=== PATIENT | male | born 1995 | race Caucasian/White ===

== ENCOUNTER 2018-10-07 17:02 | Emergency (ER) | payer SELFPAY ==
[2018-10-07] MEDS ORDERED: HYDROCODONE/APAP 5/325 MG TAB ONE (17:46)
--- NOTE | 2018-10-07 17:51 | RAD REPORT ---
EXAM DESCRIPTION: RAD - Hand Right 3 View - 10/07/2018 5:39 pm CLINICAL HISTORY: Right hand pain status post injury FINDINGS: Mildly to moderately displaced oblique fracture involves the proximal aspect of the fifth proximal phalanx. No dislocation seen
--- NOTE | 2018-10-07 18:12 | ER ---
Nurse's Notes [facility] Name: José Miguel Cantu Age: 22 yrs Sex: Male : 1995 Arrival Date: 10/07/2018 Time: 17:05 Bed 25 Private MD: Diagnosis: Displaced fracture of base of fifth metacarpal bone, right hand Presentation: 10/07 17:07 Presenting complaint: Right hand pain and swelling after punching wall 4 days ago. hb Transition of care: patient was not received from another setting of care. Onset of symptoms was October 07, 2018. Risk Assessment: Do you want to hurt yourself or someone else? Patient reports no desire to harm self or others. Initial Sepsis Screen: Does the patient meet any 2 criteria? No. Patient's initial sepsis screen is negative. Does the patient have a suspected source of infection? No. Patient's initial sepsis screen is negative. Care prior to arrival: None. 17:07 Method Of Arrival: Ambulatory 17:07 Acuity: RADHA 4 hb Triage Assessment: 18:51 Injury Description: Bruise sustained to right hand and dorsum of right hand. tl3 Historical: - Allergies: 17:08 No Known Allergies; hb - Home Meds: 17:08 None [Active]; hb - PMHx: 17:08 None; hb - PSHx: 17:08 Cholecystectomy; hb - Immunization history:: Adult Immunizations up to date. - Social history:: Smoking status: Patient/guardian denies using tobacco. - Ebola Screening: : No symptoms or risks identified at this time. Screenin:38 Abuse screen: Denies threats or abuse. Nutritional screening: No deficits noted. tl3 Tuberculosis screening: No symptoms or risk factors identified. Fall Risk None identified. Assessment: 17:38 General: Appears comfortable, slender, Behavior is calm, cooperative, appropriate for tl3 age. Pain: Complains of pain in right hand and dorsum of right hand. Neuro: Level of Consciousness is awake, alert, obeys commands. Cardiovascular: Patient's skin is warm and dry. Respiratory: Airway is patent. GI: No deficits noted. No signs and/or symptoms were reported involving the gastrointestinal system. : No deficits noted. No signs and/or symptoms were reported regarding the genitourinary system. EENT: No deficits noted. No signs and/or symptoms were reported regarding the EENT system. Derm: No deficits noted. No signs and/or symptoms reported regarding the dermatologic system. Musculoskeletal: Swelling present in right hand. 18:49 Reassessment: Patient appears in no apparent distress at this time. No changes from tl3 previously documented assessment. Patient and/or family updated on plan of care and expected duration. Pain level reassessed. Patient is alert, oriented x 3, equal unlabored respirations, skin warm/dry/pink. Vital Signs: 17:08 BP 134 / 74; Pulse 73; Resp 16; Temp 97.9; Pulse Ox 99% ; Pain 5/10; hb 18:49 BP 128 / 76; Pulse 75; Resp 18; Pulse Ox 100% on R/A; tl3 ED Course: 17:05 Patient arrived in ED. mr 17:08 Triage completed. hb 17:08 Arm band placed on left wrist. hb 17:13 Konstantin Sethi MD is Attending Physician. ps1 17:37 Hand Right 3 View XRAY In Process Unspecified. EDVT 17:37 Amira Bustamante, NOE is Primary Nurse. tl3 17:38 Patient has correct armband on for positive identification. Bed in low position. tl3 17:38 No provider procedures requiring assistance completed. Patient did not have IV access tl3 during this emergency room visit. 18:10 Dominic Lazar MD is Referral Physician. ps1 18:49 No apparent distress. tl3 18:49 Orthoglass splint: Ulnar gutter/Boxer splint applied on right forearm. tl3 Administered Medications: 17:38 Drug: [place] 5 mg-325 mg 1 tabs Route: PO; tl3 18:17 Follow up: Response: No adverse reaction tl3 Outcome: 18:11 Discharge ordered by . ps1 18:49 Discharged to home ambulatory. tl3 18:49 Condition: stable 18:49 Discharge instructions given to patient, Instructed on discharge instructions, follow up and referral plans. medication usage, Demonstrated understanding of instructions, follow-up care, medications, splint care, Prescriptions given X 2. 18:52 Patient left the ED. tl3 Signatures: Dispatcher [employer] [facility] GabeJuli HernandezWendy RN RN Konstantin Sethi MD MD [facility] Amira Bustamante, NOE RN tl3
--- NOTE | 2018-10-07 18:12 | EDPHYS ---
Physician Documentation [facility] Name: José Miguel Cantu Age: 22 yrs Sex: Male : 1995 Arrival Date: 10/07/2018 Time: 17:05 Bed 25 Private MD: ED Physician Konstantin Sethi HPI: 10/07 17:17 This 22 yrs old Male presents to ER via Ambulatory with complaints of Hand ps1 Injury. 17:17 right hand dominant male punched a wall. Pain localized over 5th MCP. Limited ROM 2/2 ps1 pain. Pain rated as moderate, worse with movement. NV intact. . Historical: - Allergies: 17:08 No Known Allergies; hb - Home Meds: 17:08 None [Active]; hb - PMHx: 17:08 None; hb - PSHx: 17:08 Cholecystectomy; hb - Immunization history:: Adult Immunizations up to date. - Social history:: Smoking status: Patient/guardian denies using tobacco. - Ebola Screening: : No symptoms or risks identified at this time. ROS: 17:17 Constitutional: Negative for fever, chills, and weight loss, Eyes: Negative for injury, ps1 pain, redness, and discharge, Cardiovascular: Negative for chest pain, palpitations, and edema, Respiratory: Negative for shortness of breath, cough, wheezing, and pleuritic chest pain, Abdomen/GI: Negative for abdominal pain, nausea, vomiting, diarrhea, and constipation, Skin: Negative for injury, rash, and discoloration, Neuro: Negative for headache, weakness, numbness, tingling, and seizure. 17:17 MS/extremity: Positive for pain, of the dorsum of right hand. Exam: 17:17 Constitutional: This is a well developed, well nourished patient who is awake, alert, ps1 and in no acute distress. Head/Face: Normocephalic, atraumatic. Eyes: Pupils equal round and reactive to light, extra-ocular motions intact. Lids and lashes normal. Conjunctiva and sclera are non-icteric and not injected. Chest/axilla: Normal chest wall appearance and motion. Nontender with no deformity. No lesions are appreciated. Cardiovascular: Regular rate and rhythm. No gallops, murmurs, or rubs. Normal PMI, no JVD. No pulse deficits. Respiratory: Lungs have equal breath sounds bilaterally, clear to auscultation and percussion. No rales, rhonchi or wheezes noted. No increased work of breathing, no retractions or nasal flaring. Abdomen/GI: Soft, non-tender, with normal bowel sounds. No distension or tympany. No guarding or rebound. No evidence of tenderness throughout. Skin: Warm, dry with normal turgor. Normal color with no rashes, no lesions, and no evidence of cellulitis. Neuro: Awake and alert, GCS 15, oriented to person, place, time, and situation. Cranial nerves II-XII grossly intact. Sensory grossly intact. 17:17 Musculoskeletal/extremity: Extremities: grossly normal except: noted in the dorsum of right hand: pain, swelling. Vital Signs: 17:08 BP 134 / 74; Pulse 73; Resp 16; Temp 97.9; Pulse Ox 99% ; Pain 5/10; hb 18:49 BP 128 / 76; Pulse 75; Resp 18; Pulse Ox 100% on R/A; tl3 Procedures: 18:12 Splinting: Splint applied to right hand using wrist splint, applied by nurse. Examined ps1 by me, post splint application: neurovascular intact, 2+ distal pulses palpable, brisk capillary refill noted, Patient tolerated well. MDM: 18:11 Patient medically screened. ps1 18:12 Data reviewed: vital signs, nurses notes, and as a result, I will discharge patient. ps1 10/07 17:16 Order name: Hand Right 3 View XRAY; Complete Time: 18:14 ps1 Administered Medications: 17:38 Drug: [place] 5 mg-325 mg 1 tabs Route: PO; tl3 18:17 Follow up: Response: No adverse reaction tl3 Disposition: 10/07/18 18:11 Discharged to Home. Impression: Displaced fracture of base of fifth metacarpal bone, right hand. - Condition is Stable. - Discharge Instructions: Boxer's Fracture. - Prescriptions for Tylenol- Codeine #3 300-30 mg Oral Tablet - take 2 tablet by ORAL route every 6 hours As needed; 30 tablet. Zofran 4 mg Oral Tablet - take 1 tablet by ORAL route every 12 hours As needed; 20 tablet. - Medication Reconciliation Form, Thank You Letter, Antibiotic Education, Prescription Opioid Use form. - Follow up: Dominic Lazar MD; When: 1 week; Reason: Further diagnostic work-up, Recheck today's complaints, Continuance of care, Re-evaluation by your physician. Follow up: Emergency Department; When: As needed; Reason: Worsening of condition. - Problem is new. - Symptoms have improved. Signatures: Dispatcher [employer] EDMS Wendy Hernandez RN RN hb Konstantin Sethi MD MD ps1 Amira Bustamante RN RN tl3 Corrections: (The following items were deleted from the chart) 18:52 18:11 10/07/2018 18:11 Discharged to Home. Impression: Displaced fracture of base of tl3 fifth metacarpal bone, right hand. Condition is Stable. Forms are Medication Reconciliation Form, Thank You Letter, Antibiotic Education, Prescription Opioid Use. Follow up: Dominic Lazar; When: 1 week; Reason: Further diagnostic work-up, Recheck today's complaints, Continuance of care, Re-evaluation by your physician. Follow up: Emergency Department; When: As needed; Reason: Worsening of condition. Problem is new. Symptoms have improved. ps1
== END 2018-10-07 18:52 | disposition home or self-care (01) ==
LOC: ER 17:02
PROC: 2W3CX1Z Immobilization of Right Lower Arm using Splint (ICD-10-PCS; principal; 2018-10-07)
DX: S62.316A Displaced fracture of base of fifth metacarpal bone, right hand, initial encounter for closed fracture (principal); W22.8XXA Striking against or struck by other objects, initial encounter
CPT/HCPCS: 99284